=== PATIENT | male | born 1955 | race Caucasian/White ===

== ENCOUNTER → 2021-08-12 12:05 | Outpatient (CLI) | payer OTHER, SELFPAY ==
--- NOTE | ~2021-08-12 | MR_ITS ---
EXAMINATION: MR shoulder RT wo con DATE: 08/12/2021 13:14 INDICATION: Right biceps strain. Superior right shoulder pain radiating down the arm. TECHNIQUE: Magnetic resonance imaging (MRI) of the right shoulder was performed without intravenous c ontrast. Sequences included axial PD-weighted FS FSE, coronal oblique PD-weighted FS FSE and T2-weigh rafael FS FSE, and sagittal oblique T2-weighted FS FSE and T1-weighted FSE. COMPARISON: None. FINDINGS: Coracoacromial arch: The acromion undersurface is flat in morphology (type I). There is severe acromioclavicular joint ost eoarthritis including inferiorly directed osteophytes. There is mild subacromial/subdeltoid bursitis. Rotator cuff: There is severe supraspinatus and infraspinatus tendinopathy. There is bursal sided fraying of supras pinatus tendon. There is mild teres minor tendinopathy. There is moderate subscapularis tendinopathy. There is no asymmetric fatty atrophy of the rotator cuff muscle bellies. There is a degenerative cys t in lesser tuberosity. Biceps tendon and glenoid labrum: There is a near complete tear of biceps tendon, a strand of which is within bicipital groove. There i s degenerative tearing of the glenoid labrum. Fluid: There is a small glenohumeral joint effusion. Bones/cartilage: There is full-thickness cartilage loss of posterior glenoid with subchondral cysts. There is partial- thickness cartilage loss of humeral head. Osteophytes are noted. IMPRESSION: 1. Near-complete tear of proximal biceps tendon. 2. Severe glenohumeral joint chondrosis. 3. Severe acromioclavicular joint osteoarthritis. 4. Severe rotator cuff tendinopathy with shallow bursal sided fraying of supraspinatus tendon. 5. Small glenohumeral joint effusion. 6. Mild subacromial/subdeltoid bursitis. Reviewed, dictated and finalized at location A. [employer]OR SERVICE IMPRESSION: 1. Near-complete tear of proximal biceps tendon. 2. Severe glenohumeral joint chondrosis. 3. Severe acromioclavicular joint osteoarthritis. 4. Severe rotator cuff tendinopathy with shallow bursal sided fraying of supras pinatus tendon. 5. Small glenohumeral joint effusion. 6. Mild subacromial/subdeltoid bursitis.
== END ==
PROVIDERS: Visit Provider Nurse Practitioner
DX: S46.211A Strain of muscle, fascia and tendon of other parts of biceps, right arm, initial encounter (principal); X58.XXXA Exposure to other specified factors, initial encounter; M19.011 Primary osteoarthritis, right shoulder; M25.411 Effusion, right shoulder
CPT/HCPCS: 73221

== ENCOUNTER 2022-02-11 11:40 | Outpatient (CLI) | payer BC, SELFPAY ==
[2022-02-11 11:56] LABS: Basophils Absolute Auto 0.1 K/mm3 (0.0-0.1); Basophils Percent Auto 0.7 % (0.2-1.2); Eosinophils Absolute Auto 0.3 K/mm3 (0-0.3); Eosinophils Percent Auto 2.6 % (0-4.4); Hemoglobin 11.5 g/dL (14.0-18.0); Immature Granulocyte Absolute 0.03 K/mm3 (0.00-0.031); Immature Granulocyte Percent A 0.3 % (0-0.5); Lymphocytes Absolute Auto 2.33 K/mm3 (0.9-3.2); Lymphocytes Percent Auto 24.7 % (18.3-44.2); Mean Corpuscular HGB Conc 31.1 g/dl (32-36); Mean Corpuscular Hemoglobin 29.9 pg (26-34); Mean Corpuscular Volume 96.4 fl (80-100); Monocytes Absolute Auto 0.7 K/mm3 (0.1-0.6); Monocytes Percent Auto 7.7 % (2.6-8.5); Platelet Count Result 284 k/mm3 (150-375); Red Blood Count 3.84 M/mm3 (4.6-6.20); Red Cell Distribution Width 13.9 % (11.5-14.5); White Blood Count 9.4 K/mm3 (4.5-10.0)
== END 2022-02-11 11:41 | disposition home or self-care (01) ==
PROVIDERS: PCP Family Medicine; Visit Provider Nurse Practitioner Family
DX: D64.9 Anemia, unspecified (principal)
CPT/HCPCS: 36415; 85025

== ENCOUNTER 2022-08-21 08:11 | Outpatient (CLI) | payer BC, SELFPAY ==
--- NOTE | ~2022-08-21 | US_ITS ---
EXAMINATION: US art doppler w press LE BI DATE: 08/21/2022 10:13 INDICATION: Peripheral vascular disease. TECHNIQUE: Segmental pressures and plethysmographic and Doppler waveforms of the brachial and lower e xtremity arteries were obtained. COMPARISON: None. FINDINGS: Right and left brachial artery pressures of 135 mm Hg and 134 mm Hg, respectively, are concordant (no rmal difference <= 30 mmHg). The right and left high-thigh pressure indices are 1.07 and 0.78, respec tively (normal > 1.2). The right ankle-brachial index (KELLY) is 0.93 (normal >= 0.9-1). The right great toe-brachial index (T BI) is 0.53 (normal >= 0.6-0.8). The right lower extremity segmental pressure gradients are increased between the right oczgo-yoh-nxsq popliteal artery and the right dorsalis pedis artery and borderline increased with respect to the posterior tibial artery. (normal gradients <= 20-30 mmHg between adjac ent levels on the same leg or the same levels on the two legs). Arterial waveforms are biphasic with brisk systolic upstrokes throughout the arteries of the right lower limb. The left KELLY is 0.36. The left TBI is 0.13. The left lower extremity segmental pressure gradients are significantly increased between the arteries of the left lower limb and the corresponding arteries a t each level in the right lower limb. No pressure obtained in the left dorsalis pedis artery with wav eforms demonstrating reversal of systolic flow suggesting an occlusion in the more proximal anterior tibial artery. Arterial waveforms are biphasic with brisk systolic upstrokes in the remaining arterie s of the left lower limb. IMPRESSION: 1. Arterial occlusive disease to bilateral lower limbs with severely decreased left KELLY and TBI and m ildly decreased right KELLY and TBI Reviewed, dictated and finalized at location A. TAL MOUNTER IMPRESSION: 1. Arterial occlusive disease to bilateral lower limbs with severely decreased left KELLY and TBI and mildly decreased right KELLY and TBI
== END 2022-08-21 08:12 | disposition home or self-care (01) ==
PROVIDERS: PCP Family Medicine; Visit Provider Podiatrist Foot & Ankle Surgery
DX: I73.9 Peripheral vascular disease, unspecified (principal)
CPT/HCPCS: 93923

== ENCOUNTER 2023-04-13 09:58 | Outpatient (CLI) | payer MEDICARE, SELFPAY ==
--- NOTE | 2023-04-13 11:00 | NEURO_ITS ---
Impression: # Non-diabetic complains of numbness of feet and balance difficulties. 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 # Needle/EMG exam revealed no fibs but has neurogenic changes. # Clinical correlation recommended. Nerve Conduction Studies Anti Sensory Summary Table Stim Site NR Peak (ms) P-T Amp (?V) Site1 Site2 Delta-P (ms) Dist (cm) Sudheer (m/s) Left Sup Fibular Anti Sensory (Ant Lat Mall) NO RESPONSE 14 cm NR 14 cm Ant Lat Mall 16.0 Right Sup Fibular Anti Sensory (Ant Lat Mall) NO RESPONSE 14 cm NR 14 cm Ant Lat Mall 16.0 Left Sural Anti Sensory (Lat Mall) Calf 5.2 6.7 Calf Lat Mall 5.2 16.0 31 Right Sural Anti Sensory (Lat Mall) Calf 3.7 8.0 Calf Lat Mall 3.7 16.0 43 Motor Summary Table Stim Site NR Onset (ms) O-P Amp (mV) Site1 Site2 Delta-0 (ms) Dist (cm) Sudheer (m/s) Left Peroneal Motor (Vastus Med) Right Peroneal Motor (Vastus Med) Left Tibial Motor (Abd Mendez Brev) NO RESPONSE Ankle NR Knee NR Right Tibial Motor (Abd Mendez Brev) Ankle 6.0 0.2 Knee Ankle 16.4 45.0 27 Knee 22.4 0.6 F Wave Studies NR F-Lat (ms) L-R F-Lat (ms) Left Peroneal (Mrkrs) (EDB) DISPERSED RESPONSE NR Right Peroneal (Mrkrs) (EDB) NO RESPONSE NR Left Tibial (Mrkrs) (Abd Hallucis) NO RESPONSE NR Right Tibial (Mrkrs) (Abd Hallucis) DISPERSED RESPONSE NR EMG Side Muscle Nerve Root Ins Act Fibs Amp Dur Recrt Comment Right AntTibialis Dp Br Fibular L4-5 Nml Nml Decr >12ms Reduced Right Gastroc Tibial S1-2 Nml Nml Decr >12ms Reduced Right Fibularis Long Sup Br Fibular L5-S1 Nml Nml Decr >12ms Reduced Right Flex Dig Long Tibial L5-S2 Nml Nml Decr >12ms Reduced Right Ext Dig Brev Dp Br Fibular L5, S1 Nml Nml Decr >12ms Reduced Left AntTibialis Dp Br Fibular L4-5 Nml Nml Decr >12ms Reduced Left Gastroc Tibial S1-2 Nml Nml Decr >12ms Reduced Left Fibularis Long Sup Br Fibular L5-S1 Nml Nml Decr >12ms Reduced Left Flex Dig Long Tibial L5-S2 Nml Nml Decr >12ms Reduced Left Ext Dig Brev Dp Br Fibular L5, S1 Nml Nml Decr >12ms Reduced MTDD
== END 2023-04-13 09:59 | disposition home or self-care (01) ==
LOC: ANHNEURO 09:59
PROVIDERS: PCP Family Medicine; Visit Provider Family Medicine
DX: G62.9 Polyneuropathy, unspecified (principal); R20.0 Anesthesia of skin
CPT/HCPCS: 95886; 95910

== ENCOUNTER 2023-10-19 07:36 | Day surgery (SDC) | payer MEDICARE, SELFPAY ==
[2023-10-05 12:54] VITALS: BMI 26.1
--- NOTE | 2023-10-18 14:10 | PM.HPGS ---
History of Present Illness History of Present Illness Consent: Risks, benefits, and alternatives have been discussed and questions answered. Patient agrees to proceed with procedure. Chief complaint: Personal History of Colon Polyps Narrative: Richard Harkins is a 68 year old male Referred for colon cancer screening. He has a history of polyps having 1 removed 6 years ago. He also has a family history of colon cancer. Review of Systems Review of Systems: All systems reviewed & are unremarkable except as noted in HPI and below PMFSH Past Medical History Medical History BMI 25.0-25.9,adult BMI 26.0-26.9,adult CAD (coronary artery disease) Depression Numbness and tingling of both feet Peripheral arterial disease Rheumatoid arthritis Wheeze Surgical History Surgical History H/O Spinal surgery Hx of right coronary artery stent placement Family History Family History Mother Carcinoma of colon Father Family history of heart disease in male family member before age 55 CHF (congestive heart failure) Sibling Cancer of mouth Tobacco abuse Social History Social History Smoking status: Current some day smoker Tobacco type: cigars Second hand tobacco smoke exposure: Yes Additional smoking assessment comments: 2 cigars per week Alcohol intake: current Drinks per week: 6 Substance use: current Substance use type: marijuana Other substance usage details: socially on weekends Do You Feel Safe in your Home?: Yes Lack of Transportation: No Lack of Food: Never True Current Housing: I Have Housing Concerned About Future Housing: No Difficulty Paying Gas/Electric Bills: No Difficulty Paying for Meds: No Currently Unemployed: No Education: High School Diploma/GED Difficulty w/ Childcare or Family Care: No Living arrangements: with family Occupation/Education: retired Additional occupation/education comments: [employer]. Gender identity (if verbalized by the patient): Male Meds Home Medications and Allergies Home Medications Medication Instructions Recorded Confirmed Type hydroxychloroquine 200 mg tablet 400 mg PO DAILY 02/16/22 10/19/23 History escitalopram oxalate 10 mg tablet See Rx Instructions .Route 04/30/23 10/19/23 Rx .COMPLEX #90 tabs aspirin 81 mg tablet,delayed 81 mg PO DAILY 09/27/23 10/19/23 History release (Adult Low Dose Aspirin) Voltaren 200 mg PO BID 10/06/23 10/19/23 History diclofenac sodium 50 mg 50 mg PO TID 10/06/23 10/19/23 History tablet,delayed release pregabalin 150 mg capsule (Lyrica) 150 mg PO BID #60 caps 10/07/23 Rx Allergies Allergy/AdvReac Type Severity Reaction Status Date / Time No Known Allergies Allergy Verified 10/19/23 08:31 Exam Const: General: alert Orientation/consciousness: patient oriented x3 Resp: Auscultation: clear to auscultation bilaterally Cardio: Rhythm: regular rhythm GI: GI Palp: Yes Soft to palpation and No Tenderness to palpation present (GI) Neuro: General: patient oriented x3 Assessment and Plan Assessment and plan (1) Personal history of colonic polyps: Code(s): Z86.010 - Personal history of colonic polyps Status: Acute Assessment and Plan: Colonoscopy with possible biopsy or polypectomy or cautery or injection of substances.
--- NOTE | 2023-10-19 07:22 | WPDANESEPPF ---
Anes - Initial Pre Proc Eval Procedure: Operation Date: 10/19/23 10:00 Proposed Procedures p Diagnostic Colonoscopy - Gregory Dickens MD Date/Time: 10/19/23 07:22 Surgeon: Gregory Dickens MD Pre Op Diagnosis: Personal History of Colon Polyps Patient Data Age: 68 Gender: M Height: 1.75 m Weight: 82.7 kg Allergies Allergy/AdvReac Type Severity Reaction Status Date / Time No Known Allergies Allergy Verified 10/19/23 08:31 Home Medications Medication Instructions Recorded Confirmed Type hydroxychloroquine 200 mg tablet 400 mg PO DAILY 02/16/22 10/19/23 History escitalopram oxalate 10 mg tablet See Rx Instructions .Route 04/30/23 10/19/23 Rx .COMPLEX #90 tabs aspirin 81 mg tablet,delayed 81 mg PO DAILY 09/27/23 10/19/23 History release (Adult Low Dose Aspirin) Voltaren 200 mg PO BID 10/06/23 10/19/23 History diclofenac sodium 50 mg 50 mg PO TID 10/06/23 10/19/23 History tablet,delayed release pregabalin 150 mg capsule (Lyrica) 150 mg PO BID #60 caps 10/07/23 Rx Patient hx anesthesia problems: none Family hx anesthesia problems: none Results Review: All pre-operative results and documents have been reviewed as part of the pre-operative evaluation. [facility] Past Medical History Medical History (Updated 10/19/23 @ 08:59 by Ovi Gomez DO) BMI 25.0-25.9,adult BMI 26.0-26.9,adult Depression Numbness and tingling of both feet Peripheral arterial disease Rheumatoid arthritis Wheeze Surgical History Surgical History (Updated 10/19/23 @ 08:59 by Ovi Gomez DO) H/O Spinal surgery Status post insertion of iliac artery stent Family History Family History Mother Carcinoma of colon Father Family history of heart disease in male family member before age 55 CHF (congestive heart failure) Sibling Cancer of mouth Tobacco abuse Social History Social History Smoking status: Current some day smoker Tobacco type: cigars Second hand tobacco smoke exposure: Yes Additional smoking assessment comments: 2 cigars per week Alcohol intake: current Drinks per week: 6 Substance use: current Substance use type: marijuana Other substance usage details: socially on weekends Do You Feel Safe in your Home?: Yes Lack of Transportation: No Lack of Food: Never True Current Housing: I Have Housing Concerned About Future Housing: No Difficulty Paying Gas/Electric Bills: No Difficulty Paying for Meds: No Currently Unemployed: No Education: High School Diploma/GED Difficulty w/ Childcare or Family Care: No Living arrangements: with family Occupation/Education: retired Additional occupation/education comments: [employer]. Gender identity (if verbalized by the patient): Male Anes - Jose Final PreProcedure Day of Procedure 10/19/23 07:22 Patient weight: overweight Heart: regular rate and rhythm Lungs: clear to auscultation Airway: Mallampati scale class II Neurological: alert and oriented Last oral intake: >/= 8 hours ASA classification: III Emergent: no Anesthetic plan: proceed Anesthesia type and monitoring: general GIVS and standard monitoring Results Review: All pre-operative results and documents have been reviewed as part of the pre-operative evaluation. Informed Consent: The patient's anesthetic plan and its attendant risks and benefits were discussed with the patient/family/POA. Questions were solicited and answers provided to the satisfaction of the patient/family/POA.
[2023-10-19 08:38] VITALS: BP 140/93; PULSE 92; RESP 18; TEMP 36.4; O2SAT 98; BMI 26.2
[2023-10-19] MEDS: LACTATED RINGERS 1,000 ML 150 ML IV CONT (08:52)
--- NOTE | 2023-10-19 08:57 | SUR.PREOP ---
[facility] EATING DISORDER PSYCHOLOGIST notified of toast eating 10/18/23 1000
--- NOTE | 2023-10-19 09:01 | SUR.PREOP ---
Dr Dickens made aware of toast 10/18/23
[2023-10-19] MEDS: SIMETHICONE ORAL SUSPENSION 20 MG/0.3 ML 30 ML BOTTLE 0.6 ML IRRIGATION (09:43)
[2023-10-19 09:52] VITALS: BP 84/58; PULSE 80; RESP 18; O2SAT 94
[2023-10-19 10:05] VITALS: BP 125/79; PULSE 81; RESP 17; O2SAT 100
[2023-10-19 10:15] VITALS: BP 123/94; PULSE 80; RESP 17; O2SAT 100
--- NOTE | 2023-10-19 12:23 | WPDANESPN ---
Anes - Prog Note Post-Op Date/Time: 10/19/23 12:23 Cardiovascular status: normal Respiratory status: normal Airway patency: baseline Mental status: baseline Post-Op hydration status: normal Vital Signs: Last Vital Signs Temp 36.4 C 10/19/23 08:38 Pulse 80 10/19/23 10:15 Resp 17 10/19/23 10:15 BP 123/94 H 10/19/23 10:15 Pulse Ox 100 10/19/23 10:15 O2 Del Method Room Air 10/19/23 10:15 Pain Score (VAS): 0 Post-procedural complaints: none Patient Feedback: Patient satisfied with anesthetic care. Other Findings: Patient vital signs back to baseline. Patient denies nausea and vomiting. Patient's pain under control. Patient OK for discharge.
== END 2023-10-19 10:33 | disposition home or self-care (01) ==
PROVIDERS: PCP Family Medicine; Visit Provider Internal Medicine Gastroenterology
PROC: 0DJD8ZZ Inspection of Lower Intestinal Tract, Via Natural or Artificial Opening Endoscopic (ICD-10-PCS; CPT 45378; principal; 2023-10-19 10:00)
DX: Z86.010 Personal history of colon polyps (principal); Z12.11 Encounter for screening for malignant neoplasm of colon; Z80.0 Family history of malignant neoplasm of digestive organs; K64.8 Other hemorrhoids
CPT/HCPCS: 45378

== ENCOUNTER 2024-06-16 11:35 | Outpatient (CLI) | payer MEDICARE, SELFPAY ==
--- NOTE | ~2024-06-16 | XR_ITS ---
Clinical Indication: Bronchitis PA and lateral views of the chest: Comparison: 01/26/2019 Findings: The lungs are clear, without evidence of focal consolidation or pleural effusion. Possible COPD. Cardiomediastinal silhouette is within normal limits. Thoracolumbar spinal fixation hardware is partially imaged. Impression: Clear lungs. Possible COPD. Reviewed, dictated and finalized at location M. RT FURNACE HELPER Impression: Clear lungs. Possible COPD.
== END 2024-06-16 11:36 | disposition home or self-care (01) ==
LOC: MICIMG 11:36
PROVIDERS: PCP Family Medicine; Visit Provider Family Medicine
DX: J40 Bronchitis, not specified as acute or chronic (principal)
CPT/HCPCS: 71046

== ENCOUNTER 2024-10-02 10:53 | Outpatient (CLI) | payer MEDICARE, SELFPAY ==
--- NOTE | ~2024-10-02 | MR_ITS ---
MRI of the left shoulder Technique: Axial proton-density fat-sat images, coronal proton density fat-sat and T2 fat-sat images, and sagittal T1-weighted and T2 fat-sat images were acquired. Clinical History: Pain Findings: There is moderate AC joint degenerative change with fluid in the joint space. Coracoclavicu lar, coracoacromial, and coracohumeral ligaments are intact. There is moderate to advanced supraspinatus and infraspinatus tendinosis, without partial or full-thi ckness tear. Subscapularis tendon demonstrates extensive moderate to high-grade partial thickness art icular surface tearing. Tendon of long head of the biceps is intact. No labral tear is seen. Inferior glenohumeral ligament is intact. There is small to moderate glenohumeral joint effusion, wit h additional fluid distention of the biceps tendon sheath. No fluid distention of the subacromial/sub deltoid bursa. No degenerative change of the glenohumeral joint. No muscle atrophy or edema. Impression: Extensive moderate to high-grade partial thickness articular surface tearing of the subscapularis ten don. Small to moderate glenohumeral joint effusion. Moderate AC joint degenerative change. Tendinosis of the supraspinatus and infraspinatus tendons. Reviewed, dictated and finalized at location . Impression: Extensive moderate to high-grade partial thickness articular surface tearing of the subscapularis tendon. Small to moderate glenohumeral joint effusion. Moderate AC joint degenerative change. Tendinosis of the supraspinatus and infraspinatus tendons.
== END 2024-10-02 10:54 | disposition home or self-care (01) ==
LOC: MICIMG 10:54
PROVIDERS: PCP Family Medicine
DX: M19.012 Primary osteoarthritis, left shoulder (principal); M25.412 Effusion, left shoulder
CPT/HCPCS: 73221

== ENCOUNTER 2025-06-07 10:08 | Outpatient (CLI) | payer MEDICARE, SELFPAY ==
--- NOTE | 2025-06-07 15:48 | P.PCNPFT_ITS ---
PFT Procedure Performed PFT Procedure Performed Spirometry with Pre/Post Bronchodilator Plethysmography (Lung Vol) Diffusing Cap (DLCO) Flow Vol Loop PFT Interpretation This is a pulmonary function test with pre and post-bronchodilator spirometry, plethysmography and diffusing capacity. The test was performed and results interpreted in accordance with the 2019 and 2005 ATS/ERS Task Force guidelines respectively using the Global Lung Function Initiative-2012 reference equations. Patient demonstrated good effort and cooperation. Reproducibility criteria were met. The quality of the pre bronchodilator spirometry maneuver was Grade A and post bronchodilator spirometry maneuver was Grade A. Findings: Spirometry: There is decreased maximal expiratory airflow at all lung volumes with a concave expiratory flow tracing. The contour the inspiratory flow tracing is normal. The pre bronchodilator FVC is 2.88 L, 62% predicted. The pre bronchodilator FEV1 is 1.27 L, 36% predicted. The pre bronchodilator FEV1: FVC ratio is 44%. The post bronchodilator FVC is 3.50 L, representing a 22% increase. The post bronchodilator FEV1 is 1.48 L, representing a 16% increase. The post bronchodilator FEV1: FVC ratio is 42%. Plethysmography: The total lung capacity is 10.03 L, 135% predicted. The func tional residual capacity is 7.76 L, 196% predicted. The residual volume is 6.22 L, 249% predicted. The residual volume: Total lung capacity ratio 62%. Diffusing capacity: The diffusing capacity unadjusted for hemoglobin and carboxyhemoglobin is 13.3, 48% predicted. The diffusing capacity adjusted for alveolar volume is 2.54, 65% predicted. Impression: There is a severe obstructive abnormality. There is significant improvement after inhaling a single dose of albuterol. The increase in residual volume to total lung volume ratio is consistent with hyperinflation from an obstructive abnormality. The diffusing capacity unadjusted for hemoglobin and carboxyhemoglobin is moderately decreased and remains mildly decreased when adjusted for alveolar volume. There are no prior studies for comparison
== END 2025-06-07 10:09 | disposition home or self-care (01) ==
PROVIDERS: PCP Family Medicine; Visit Provider Family Medicine
DX: R94.2 Abnormal results of pulmonary function studies (principal); J44.9 Chronic obstructive pulmonary disease, unspecified
CPT/HCPCS: 94060; 94726; 94729